=== PATIENT | male | born 1935 | race Caucasian/White ===

== ENCOUNTER 2020-06-14 14:28 | Observation (INO) ==
[2020-06-14 19:46] LABS: Basophils # 0.1 10*3/uL (0.0-0.2); Basophils % 0.7 % (0.0-0.8); Eosinophils # 0.3 10*3/uL (0.0-0.87); Eosinophils % 2.5 % (0.00-10.9); Hematocrit 43.6 VOL% (42.0-52.0); Hemoglobin 14.2 GM/DL (14.0-18.0); Immature Granulocytes % 0.4 %; Immature Granulocytes Absolute 0.06 #; Lymphocytes # 2.6 10*3/uL (1.4-4.0); Lymphocytes % 18.7 % (21.2-54.2); Mean Corpuscular HGB Conc 32.6 GM/DL (32-36); Mean Corpuscular Volume 95.6 FL (87-102); Monocytes % 7.7 % (1.7-12.7); Platelet Count 213 T/CUMM (130-400); Red Blood Count 4.56 MC/CUMM (3.8-5.5); Red Cell Distribution Width 12.9 % (9.3-17.3); White Blood Count 13.7 T/CUMM (4-12)
[2020-06-14 20:04] LABS: Albumin 4.1 G/DL (3.4-5.0); Bilirubin,Total 0.8 MG/DL (0.2-1.0); Calcium 8.8 MG/DL (8.5-10.1); Potassium 4.1 MMOL/L (3.5-5.1); Total Protein 7.2 G/DL (6.4-8.2)
[2020-06-14] MEDS ORDERED: FUROSEMIDE 100 MG/10 ML VIAL IV STA (21:09)
[2020-06-14 21:54] LABS: Bilirubin,Urine Negative (Negative); Blood, Urine Moderate mg/dL (Negative); Glucose,Urine (UA) Negative (Negative); Ketones,Urine Negative (Negative); Mucus,Urine Occasional /LPF (Occasional); Nitrite,Urine Negative (Negative); Protein,Urine Negative; RBC,Urine 4 /HPF (0-4); Squamous Epithelial Cell,Urine Occasional /HPF (0-10); Urine Appearance CLEAR (Clear); Urine Color Yellow (Yellow); Urine Specific Gravity 1.018 (1.001-1.035); Urine Urobilinogen < 2.0 EU/DL (0.2-1.0); WBC,Urine 1 /HPF (0-6)
[2020-06-14] MEDS ORDERED: ACETAMINOPHEN 325 MG TABLET PO PRN (22:24)
[2020-06-14] MEDS ORDERED: ONDANSETRON 4 MG/2 ML VIAL IV PRN (22:24)
[2020-06-15] MEDS ORDERED: amLODIPine 10 MG TABLET PO ONE (00:37)
[2020-06-15 05:10] LABS: Basophils # 0.1 10*3/uL (0.0-0.2); Basophils % 0.7 % (0.0-0.8); Eosinophils # 0.3 10*3/uL (0.0-0.87); Eosinophils % 2.4 % (0.00-10.9); Hematocrit 41.2 VOL% (42.0-52.0); Hemoglobin 13.6 GM/DL (14.0-18.0); Immature Granulocytes % 0.3 %; Immature Granulocytes Absolute 0.03 #; Lymphocytes # 2.3 10*3/uL (1.4-4.0); Lymphocytes % 20.2 % (21.2-54.2); Mean Corpuscular Volume 93.8 FL (87-102); Mean Platelet Volume 10.1 FL (9.6-12.0); Monocytes % 7.9 % (1.7-12.7); Neutrophils % 68.5 % (38.7-73.9); Platelet Count 196 T/CUMM (130-400); Red Blood Count 4.39 MC/CUMM (3.8-5.5); White Blood Count 11.5 T/CUMM (4-12)
[2020-06-15 05:25] LABS: Albumin 3.5 G/DL (3.4-5.0); Bilirubin,Total 1.7 MG/DL (0.2-1.0); Calcium 8.8 MG/DL (8.5-10.1); Osmolality,Calculated 284.3 MOS/KG (273-304); Potassium 3.6 MMOL/L (3.5-5.1); Total Protein 6.9 G/DL (6.4-8.2)
[2020-06-15] MEDS ORDERED: NITROGLYCERIN SL 0.4 MG TABLET SL PRN (08:38)
[2020-06-15] MEDS ORDERED: DOCUSATE SODIUM 100 MG CAPSULE PO SCH (09:00)
[2020-06-15] MEDS ORDERED: PANTOPRAZOLE 40 MG TABLET PO SCH ×2 (09:00→21:00)
[2020-06-15] MEDS ORDERED: amLODIPine 10 MG TABLET PO SCH (09:00)
[2020-06-15] MEDS ORDERED: MULTIVITAMIN (CENTRUM) TABLET PO SCH (10:15)
[2020-06-15] MEDS ORDERED: BUMETANIDE 1 MG TABLET PO SCH (10:15)
[2020-06-15] MEDS ORDERED: carvediloL 25 MG TABLET PO SCH (10:15)
[2020-06-15] MEDS ORDERED: CITALOPRAM 20 MG TABLET PO SCH (10:15)
[2020-06-15] MEDS ORDERED: MAGNESIUM OXIDE 400 MG TABLET PO SCH (10:15)
[2020-06-15] MEDS ORDERED: POTASSIUM CHLORIDE 10 MEQ TABLET PO SCH (10:15)
[2020-06-15 11:43] VITALS: BP 131/83
[2020-06-15] MEDS ORDERED: ASPIRIN EC 81 MG TABLET PO SCH (21:00)
[2020-06-15] MEDS ORDERED: lisinopriL 10 MG TABLET PO SCH (21:00)
== END 2020-06-15 11:50 | disposition home or self-care (01) ==
LOC: N.ED 14:28 → N.EDINP 14:28 → N.TELEN 23:15
PROVIDERS: ADMIT Family Medicine; ATTEND Family Medicine